=== PATIENT | male | born 1945 | race Caucasian/White ===

== ENCOUNTER 2016-11-15 19:27 | Emergency (ER) | payer MEDICARE, OTHER ==
[2016-11-15 19:46] VITALS: BP 148/75; PULSE 83; RESP 18; TEMP 98.3; O2SAT 96
== END 2016-11-15 20:25 | disposition home or self-care (01) | DRG 552 ==
LOC: ED 19:27
DX: M62.830 Muscle spasm of back (principal)
CPT/HCPCS: 99282